=== PATIENT | female | born 1945 | race Caucasian/White ===

== ENCOUNTER → 2020-10-17 10:35 | Outpatient (CLI) | payer MEDICARE, SELFPAY ==
--- NOTE | 2020-10-17 | XR_ITS ---
PROCEDURE: XR FOOT LT MIN 3V CLINICAL INDICATION: FOOT INJURY Pain and swelling COMPARISON: No exams were available for comparison FINDINGS: No fracture or dislocation. No lytic or blastic change. There is normal mineralization. The joint spaces are well-preserved. No significant degenerative/arthritic changes. No erosive changes evident. Other findings:Small enthesophyte noted at the Achilles region IMPRESSION: No acute findings. Dictated by: Mario Sewell MD 10/17/2020 11:24 Mario Sewell MD in [place] 10/17/2020 11:24
--- NOTE | 2020-10-17 | XR_ITS ---
PROCEDURE: XR ANKLE LT MIN 3V CLINICAL INDICATION: ANKLE PAIN, LT COMPARISON: No exams were available for comparison FINDINGS: No fracture or dislocation. No lytic or blastic change. There is normal mineralization. The joint spaces are well-preserved. No significant degenerative/arthritic changes. No erosive changes evident. Other findings:There is mild soft tissue swelling medially. Faint calcific density along the medial aspect and at the tip of the medial malleolus IMPRESSION: Soft tissue swelling. There are 2 faint calcific densities at the medial malleolar region. The larger of the 2 areas as well circumscribed and more medial. Smaller of 2 regions is at the tip of the medial malleolus and could be due to an old or acute avulsion injury. Dictated by: Mario Sewell MD 10/17/2020 11:27 Mario Sewell MD in [facility] 10/17/2020 11:27
== END ==
PROVIDERS: PCP Family Medicine; Visit Provider Nurse Practitioner Family
DX: M25.572 Pain in left ankle and joints of left foot (principal); S99.922A Unspecified injury of left foot, initial encounter
CPT/HCPCS: 73610; 73630

== ENCOUNTER → 2020-10-18 07:10 | Outpatient (CLI) | payer MEDICARE, SELFPAY ==
--- NOTE | 2020-10-18 07:17 | CT_ITS ---
PROCEDURE: CT ANKLE LT WO CON CLINICAL HISTORY: ANKLE PAIN Heavy box fell onto lt ankle Pain medially Poss fx COMPARISON: CR XR ANKLE LT MIN 3V from 10/17/2020 TECHNIQUE: Axial images obtained with sagittal and coronal reformats. All CT scans at the facility use one or more dose reduction, viz: automated exposure control, ma/kV adjustment per patient size (including targeted exams where dose is matched to indication, i.e. head), or iterative reconstruction technique. FINDINGS: Faint calcific densities are present at the tip the medial malleolus. Largest of these densities measures approximately 4 mm and is well-circumscribed consistent with either an old injury or ununited ossicle. The 2 smaller densities are proximally 1 mm. These are likely due to additional small areas of dystrophic calcification as opposed to avulsion fractures. No definite acute fracture evident. The talar dome has an unremarkable appearance. The ankle mortise is preserved. There is a faint calcific density at the tip of the lateral malleolus suspicious for an old avulsion fracture. There is prominent soft tissue swelling along the medial aspect of the ankle with a focal soft tissue density measuring 3 cm AP and 1.4 cm transverse in the subcutaneous tissues along the posterior medial aspect of the distal tibial region above the level of the ankle joint consistent with a hematoma. This extends inferiorly. Hematoma is also noted in the subcutaneous tissues medial to the calcaneus area. IMPRESSION: 1. No definite acute fracture. Calcific density is noted at the medial malleolar region which may be related to ununited ossification centers versus old fractures or dystrophic calcification. 2. Suspected old avulsion fracture of the tip of the lateral malleolus. 3. Hematoma of the lower leg medially and posteriorly and of the medial aspect of the foot and ankle. MRI may provide further evaluation for ligamentous or tendinous injury if clinically desired. Dictated by: Mario Sewell MD 10/19/2020 09:11 Mario Sewell MD in [place] 10/19/2020 09:11
== END ==
PROVIDERS: PCP Family Medicine; Visit Provider Nurse Practitioner Family
DX: M25.572 Pain in left ankle and joints of left foot (principal)
CPT/HCPCS: 73700

== ENCOUNTER 2020-10-25 13:37 | Outpatient (RCR) | payer MEDICARE, SELFPAY | END 2020-10-25 14:09 | disposition home or self-care (01) | LOC: PT 13:37 | PROVIDERS: Visit Provider Orthopaedic Surgery | DX: L03.116 Cellulitis of left lower limb (principal); S99.912A Unspecified injury of left ankle, initial encounter; S90.02XA Contusion of left ankle, initial encounter | CPT/HCPCS: 97760 ==

== ENCOUNTER → 2020-12-21 13:36 | Outpatient (CLI) | payer MEDICARE, SELFPAY ==
--- NOTE | 2020-12-21 13:44 | XR_ITS ---
PROCEDURE: XR ANKLE LT MIN 3V CLINICAL INDICATION: left ankle injury COMPARISON: CR XR ANKLE LT MIN 3V from 10/17/[address] ANKLE LT WO CON from 10/18/2020 FINDINGS: There is an old avulsion fracture at the tip of the lateral malleolus and at the tip of the medial malleolus. No acute fracture or dislocation is evident. There is mild soft tissue swelling medially. IMPRESSION: No acute findings. Dictated by: Mario Sewell MD 12/21/2020 15:49 Mario Sewell MD in [place] 12/21/2020 15:49
== END ==
PROVIDERS: PCP Family Medicine; Visit Provider Orthopaedic Surgery
DX: S99.912A Unspecified injury of left ankle, initial encounter (principal)
CPT/HCPCS: 73610

== ENCOUNTER → 2022-04-16 11:00 | Outpatient (CLI) | payer MEDICARE, SELFPAY ==
[2022-04-16 19:48] LABS: Alanine Aminotransferase 20 U/L (12-78); Albumin Level 4.9 g/dl (3.5-5.0); Albumin/Globulin Ratio 1.8 (1.1-1.8); Alkaline Phosphatase 102 U/L (38-126); Anion Gap 17.3 mEq/L (5-15); Aspartate Amino Transferase 39 U/L (14-36); Bilirubin,Total 0.5 mg/dl (0.2-1.3); Blood Urea Nitrogen 16 mg/dl (7-17); Calcium 10.6 mg/dl (8.4-10.2); Carbon Dioxide 32 mmol/L (22.0-30.0); Chloride 97 mmol/L (98-107); Chol/HDL Ratio 2.8 (1-3.5); Cholesterol 179 mg/dl (140-200); Estimated Glomerular Filt Rate 61 ml/min (>60); GFR (African American) 74 ML/MIN (>60); Globulin 2.7 g/dL (1.3-3.2); Glucose 91 mg/dl (74-100); HDL Cholesterol 64 mg/dl (40-60); Sodium 140 mmol/L (136-145); Total Protein,Serum 7.6 g/dl (6.3-8.2); Triglycerides 88 mg/dl (30-150); VLDL Cholesterol 18 mg/dL (0-40)
[2022-04-16 20:34] LABS: Potassium 6.3 mmoL/L (3.5-5.1)
== END ==
PROVIDERS: PCP Family Medicine; Visit Provider Family Medicine
DX: I10 Essential (primary) hypertension (principal)
CPT/HCPCS: 80053; 80061

== ENCOUNTER → 2022-04-18 11:52 | Outpatient (CLI) | payer MEDICARE, SELFPAY ==
[2022-04-18 17:42] LABS: Potassium 5.6 mmoL/L (3.5-5.1)
== END ==
PROVIDERS: PCP Family Medicine; Visit Provider Family Medicine
DX: E87.5 Hyperkalemia (principal)
CPT/HCPCS: 84132

== ENCOUNTER → 2022-06-06 11:16 | Outpatient (CLI) | payer MEDICARE, SELFPAY ==
[2022-06-06 18:37] LABS: Chloride 99 mmol/L (98-107); Potassium 5.6 mmoL/L (3.5-5.1); Sodium 139 mmol/L (136-145)
[2022-06-06 18:40] LABS: Anion Gap 16.6 mEq/L (5-15); Blood Urea Nitrogen 17 mg/dl (7-17); Calcium 9.6 mg/dl (8.4-10.2); Carbon Dioxide 29 mmol/L (22.0-30.0); Estimated Glomerular Filt Rate 70 ml/min (>60); GFR (African American) 84 ML/MIN (>60); Glucose 89 mg/dl (74-100)
== END ==
PROVIDERS: PCP Nurse Practitioner; Visit Provider Nurse Practitioner
DX: E78.5 Hyperlipidemia, unspecified (principal); I10 Essential (primary) hypertension
CPT/HCPCS: 80048

== ENCOUNTER → 2022-06-11 13:50 | Outpatient (CLI) | payer MEDICARE, SELFPAY ==
--- NOTE | 2022-06-11 13:50 | CA_ITS ---
FINAL REPORT TECHNIQUE: Ultrasound images of the deep venous system were obtained from the left groin to the calf veins. CLINICAL HISTORY: left popliteal pain, history Factor V Leiden mutat FINDINGS: The deep venous system is normally compressible. Normal flow is identified. IMPRESSION: No evidence of left lower extremity DVT. Reviewed, Interpreted and Dictated by Marija Silva MD Transcribed by Francheska Padgett Authenticated and [facility]
== END ==
PROVIDERS: PCP Nurse Practitioner; Visit Provider Nurse Practitioner
DX: M79.605 Pain in left leg (principal); D68.2 Hereditary deficiency of other clotting factors
CPT/HCPCS: 93971

== ENCOUNTER → 2022-06-18 14:32 | Outpatient (CLI) | payer MEDICARE, SELFPAY ==
--- NOTE | 2022-06-18 14:33 | US_ITS ---
FINAL REPORT TECHNIQUE: Limited sonographic imaging of the right thigh soft tissues was obtained. CLINICAL HISTORY: LAD right inguinal and right anterior medial thigh FINDINGS: There are several, hyperechoic soft tissue nodules measuring up to 3 cm. These are avascular and favored to represent small lipomas. No fluid collection is identified. IMPRESSION: Hyperechoic, nonvascular, soft tissue nodules measuring up to 3 cm favored to represent lipomas. Reviewed, Interpreted and Dictated by Marija Silva MD Transcribed by Francheska Padgett Authenticated and [facility]
== END ==
PROVIDERS: PCP Nurse Practitioner; Visit Provider Nurse Practitioner
DX: R59.0 Localized enlarged lymph nodes (principal)
CPT/HCPCS: 76882

== ENCOUNTER → 2022-07-06 11:00 | Outpatient (CLI) | payer MEDICARE, SELFPAY ==
[2022-07-06 18:04] LABS: Blood Urea Nitrogen 23 mg/dl (7-17); Calcium 9.6 mg/dl (8.4-10.2); Carbon Dioxide 30 mmol/L (22.0-30.0); Chloride 100 mmol/L (98-107); Estimated Glomerular Filt Rate 48 ml/min (>60); GFR (African American) 58 ML/MIN (>60); Glucose 95 mg/dl (74-100); Sodium 136 mmol/L (136-145)
== END ==
PROVIDERS: PCP Family Medicine; Visit Provider Family Medicine
DX: Z01.89 Encounter for other specified special examinations (principal); I10 Essential (primary) hypertension
CPT/HCPCS: 80048

== ENCOUNTER → 2022-07-12 21:04 | Outpatient (CLI) | payer MEDICARE, SELFPAY ==
[2022-07-12 20:01] LABS: Anion Gap 14.6 mEq/L (5-15); Blood Urea Nitrogen 14 mg/dl (7-17); Calcium 9.1 mg/dl (8.4-10.2); Carbon Dioxide 29 mmol/L (22.0-30.0); Chloride 96 mmol/L (98-107); Estimated Glomerular Filt Rate 54 ml/min (>60); GFR (African American) 65 ML/MIN (>60); Glucose 93 mg/dl (74-100); Potassium 4.6 mmoL/L (3.5-5.1); Sodium 135 mmol/L (136-145)
[2022-07-12 20:28] LABS: Creatinine,Urine Random 162 mg/dL (Not Estab.)
== END ==
PROVIDERS: PCP Nurse Practitioner; Visit Provider Nurse Practitioner
DX: I10 Essential (primary) hypertension (principal)
CPT/HCPCS: 80048; 82043; 82570

== ENCOUNTER → 2022-10-10 23:35 | Outpatient (CLI) | payer MEDICARE, SELFPAY | PROVIDERS: PCP Nurse Practitioner; Visit Provider Nurse Practitioner | DX: I10 Essential (primary) hypertension (principal) ==

== ENCOUNTER → 2022-10-16 18:47 | Outpatient (CLI) | payer MEDICARE, SELFPAY ==
[2022-10-16 19:12] LABS: Chloride 97 mmol/L (98-107); Potassium 4.8 mmoL/L (3.5-5.1); Sodium 138 mmol/L (136-145)
[2022-10-16 19:15] LABS: Alanine Aminotransferase 22 U/L (12-78); Albumin Level 4.4 g/dl (3.5-5.0); Albumin/Globulin Ratio 1.6 (1.1-1.8); Alkaline Phosphatase 116 U/L (38-126); Anion Gap 17.8 mEq/L (5-15); Aspartate Amino Transferase 61 U/L (14-36); Bilirubin,Total 0.7 mg/dl (0.2-1.3); Blood Urea Nitrogen 22 mg/dl (7-17); Calcium 9.4 mg/dl (8.4-10.2); Carbon Dioxide 28 mmol/L (22.0-30.0); Chol/HDL Ratio 2.9 (1-3.5); Cholesterol 163 mg/dl (140-200); Estimated Glomerular Filt Rate 48 ml/min (>60); GFR (African American) 58 ML/MIN (>60); Globulin 2.8 g/dL (1.3-3.2); Glucose 117 mg/dl (74-100); HDL Cholesterol 56 mg/dl (40-60); Total Protein,Serum 7.2 g/dl (6.3-8.2); Triglycerides 154 mg/dl (30-150); VLDL Cholesterol 31 mg/dL (0-40)
[2022-10-16 19:26] LABS: Direct LDL Cholesterol 64.15 mg/dL (100-129)
[2022-10-16 19:32] LABS: Free T4 (Free Thyroxine) 1.27 ng/dl (0.78-2.19)
[2022-10-16 19:47] LABS: Thyroid Stimulating Hormone < 0.02 uIU/mL (0.465-4.68)
[2022-10-18 17:18] LABS: Thyroglobulin IMA CHARGE YES; Thyroglobulin Level <1.0 IU/mL (0.0-0.9)
== END ==
PROVIDERS: PCP Nurse Practitioner; Visit Provider Nurse Practitioner
DX: I10 Essential (primary) hypertension (principal); E78.5 Hyperlipidemia, unspecified; Z79.899 Other long term (current) drug therapy
CPT/HCPCS: 80053; 80061; 84439; 84443; 86800

== ENCOUNTER → 2022-11-19 23:31 | Outpatient (CLI) | payer MEDICARE, SELFPAY ==
[2022-11-19 19:39] LABS: Basophils # 0.1 K/mm3 (0-0.2); Basophils % 0.8 % (0.1-2.0); Eosinophils # 0.2 K/mm3 (0.0-0.4); Eosinophils % 2.4 % (0.1-12.0); Hematocrit 48.1 % (37.0-47.0); Hemoglobin 14.6 g/dL (12.2-16.2); Lymphocytes # 1.5 K/mm3 (0.7-4.5); Lymphocytes % 17.9 % (10-50); Mean Corpuscular HGB Conc 30.4 g/dL (31.8-35.4); Mean Corpuscular Hemoglobin 27.1 pg (27.0-31.2); Mean Corpuscular Volume 89.3 fl (81-99); Monocytes # 0.5 K/mm3 (0.1-1.0); Monocytes % 6.2 % (1.7-9.3); Neutrophils # 5.9 K/mm3 (1.8-7.8); Neutrophils % 72.8 % (37.0-80.0); Platelet Count 639 K/mm3 (142-424); Red Blood Count 5.38 M/mm3 (4.20-5.40); Red Cell Distribution Width 14.9 % (11.5-17.5); White Blood Count 8.1 K/mm3 (4.8-10.8)
[2022-11-19 19:43] LABS: Alanine Aminotransferase 20 U/L (12-78); Albumin Level 4.5 g/dl (3.5-5.0); Albumin/Globulin Ratio 1.7 (1.1-1.8); Alkaline Phosphatase 84 U/L (38-126); Aspartate Amino Transferase 40 U/L (14-36); Bilirubin,Total 0.5 mg/dl (0.2-1.3); Blood Urea Nitrogen 17 mg/dl (7-17); Calcium 8.9 mg/dl (8.4-10.2); Carbon Dioxide 29 mmol/L (22.0-30.0); Chloride 98 mmol/L (98-107); Estimated Glomerular Filt Rate 61 ml/min (>60); GFR (African American) 73 ML/MIN (>60); Globulin 2.7 g/dL (1.3-3.2); Glucose 91 mg/dl (74-100); Sodium 138 mmol/L (136-145); Total Protein,Serum 7.2 g/dl (6.3-8.2)
== END ==
PROVIDERS: PCP Nurse Practitioner; Visit Provider Nurse Practitioner
DX: K58.9 Irritable bowel syndrome, unspecified (principal); N28.9 Disorder of kidney and ureter, unspecified; R74.8 Abnormal levels of other serum enzymes
CPT/HCPCS: 80053; 85025

== ENCOUNTER → 2023-01-17 08:42 | Outpatient (CLI) | payer MEDICARE, SELFPAY ==
--- NOTE | 2023-01-17 08:42 | MR_ITS ---
FINAL REPORT TECHNIQUE: Postcontrast images of the abdomen were performed with magnetic resonance imaging. Extensive 3-D reconstruction images were performed. Three-dimensional MIP images of the abdominal aorta and iliac arteries were evaluated. CLINICAL HISTORY: history of celiac stenosis, history liver neoplasm, BLOATING, FATIGUE, DIARRHEA COMPARISON: None FINDINGS: 3D reconstruction MRA images of the abdomen and pelvis were evaluated. There is slight tortuosity of the infrarenal abdominal aorta eccentric to the left but no significant ectasia is identified. The origins of the celiac and superior mesenteric arteries are widely patent. Single renal arteries are noted bilaterally, without evidence of significant renal artery stenosis. The inferior mesenteric artery was not identified on this exam and is presumed occluded or near occluded. The iliac arteries are widely patent without evidence of focal stenosis. IMPRESSION: Widely patent celiac and superior mesenteric arteries. The inferior mesenteric artery was not visualized, suggesting occlusion or near occlusion. Single renal arteries are present bilaterally without evidence of renal artery stenosis. Reviewed, Interpreted and Dictated by Anup Gilbert MD Transcribed by Janelle Landrum Authenticated and . [facility]
== END ==
LOC: RAD 08:42
PROVIDERS: PCP Nurse Practitioner; Visit Provider Nurse Practitioner
DX: D37.6 Neoplasm of uncertain behavior of liver, gallbladder and bile ducts (principal); I77.1 Stricture of artery
CPT/HCPCS: 74185; A9576

== ENCOUNTER → 2023-02-21 13:42 | Outpatient (CLI) | payer MEDICARE, SELFPAY ==
[2023-02-21 14:21] LABS: Basophils # 0.1 K/mm3 (0-0.2); Basophils % 0.8 % (0.1-2.0); Eosinophils # 0.4 K/mm3 (0.0-0.4); Eosinophils % 3.8 % (0.1-12.0); Hematocrit 49.3 % (37.0-47.0); Hemoglobin 15.1 g/dL (12.2-16.2); Lymphocytes # 1.8 K/mm3 (0.7-4.5); Lymphocytes % 19.2 % (10-50); Mean Corpuscular HGB Conc 30.7 g/dL (31.8-35.4); Mean Corpuscular Hemoglobin 26.6 pg (27.0-31.2); Mean Corpuscular Volume 86.8 fl (81-99); Mean Platelet Volume 9.1 fl (7.4-10.4); Monocytes # 0.6 K/mm3 (0.1-1.0); Monocytes % 5.8 % (1.7-9.3); Neutrophils # 6.7 K/mm3 (1.8-7.8); Neutrophils % 70.4 % (37.0-80.0); Platelet Count 647 K/mm3 (142-424); Red Blood Count 5.68 M/mm3 (4.20-5.40); Red Cell Distribution Width 14.6 % (11.5-17.5); White Blood Count 9.5 K/mm3 (4.8-10.8)
[2023-02-21 15:43] LABS: Iron 43 ug/dL (37-170)
[2023-02-21 15:52] LABS: Total Iron Binding Capacity 430 ug/dL (265-497)
[2023-02-21 16:20] LABS: Ferritin 8.81 ng/ml (11.1-264)
[2023-02-23 13:48] LABS: Peripheral Smear Review Scanned Result
== END ==
PROVIDERS: PCP Nurse Practitioner; Visit Provider Internal Medicine Medical Oncology
DX: D50.9 Iron deficiency anemia, unspecified; R79.89 Other specified abnormal findings of blood chemistry
CPT/HCPCS: 36415; 82728; 83540; 83550; 85025

== ENCOUNTER 2023-03-21 15:14 | Outpatient (CLI) | payer MEDICARE, SELFPAY ==
[2023-03-21 15:16] VITALS: BMI 23.6
--- NOTE | 2023-03-21 15:24 | PC.NURSE ---
1524-collected labs via venipuncture stick with butterfly in left ac;waiting for labs for possible therapeutic phlebotomy if hct >45
[2023-03-21 15:32] LABS: Basophils # 0.1 K/mm3 (0-0.2); Eosinophils # 0.3 K/mm3 (0.0-0.4); Eosinophils % 3.4 % (0.1-12.0); Hematocrit 45.8 % (37.0-47.0); Lymphocytes # 1.9 K/mm3 (0.7-4.5); Lymphocytes % 23.5 % (10-50); Mean Corpuscular HGB Conc 32.8 g/dL (31.8-35.4); Mean Corpuscular Hemoglobin 28.7 pg (27.0-31.2); Mean Corpuscular Volume 87.5 fl (81-99); Mean Platelet Volume 8.8 fl (7.4-10.4); Monocytes # 0.4 K/mm3 (0.1-1.0); Monocytes % 4.7 % (1.7-9.3); Neutrophils # 5.4 K/mm3 (1.8-7.8); Neutrophils % 67.3 % (37.0-80.0); Platelet Count 609 K/mm3 (142-424); Red Blood Count 5.24 M/mm3 (4.20-5.40); Red Cell Distribution Width 16.5 % (11.5-17.5)
--- NOTE | 2023-03-21 15:38 | PC.NURSE ---
1538-pt d/c home she did not need phlebotomy with hct of 45.8.
== END 2023-03-21 15:38 | disposition home or self-care (01) ==
LOC: INF 15:15
PROVIDERS: PCP Nurse Practitioner; Visit Provider Internal Medicine Medical Oncology
DX: Z15.89 Genetic susceptibility to other disease (principal); D45 Polycythemia vera; D47.1 Chronic myeloproliferative disease; D68.2 Hereditary deficiency of other clotting factors
CPT/HCPCS: 36415; 85025

== ENCOUNTER → 2023-04-10 10:53 | Outpatient (CLI) | payer MEDICARE, SELFPAY ==
[2023-04-10 11:36] LABS: Basophils # 0.1 K/mm3 (0-0.2); Basophils % 1.1 % (0.1-2.0); Eosinophils # 0.3 K/mm3 (0.0-0.4); Eosinophils % 3.2 % (0.1-12.0); Hematocrit 49.8 % (37.0-47.0); Hemoglobin 16.1 g/dL (12.2-16.2); Lymphocytes # 1.3 K/mm3 (0.7-4.5); Lymphocytes % 16.6 % (10-50); Mean Corpuscular HGB Conc 32.4 g/dL (31.8-35.4); Mean Corpuscular Hemoglobin 29.3 pg (27.0-31.2); Mean Corpuscular Volume 90.5 fl (81-99); Mean Platelet Volume 8.5 fl (7.4-10.4); Monocytes # 0.4 K/mm3 (0.1-1.0); Monocytes % 5.1 % (1.7-9.3); Neutrophils # 5.9 K/mm3 (1.8-7.8); Neutrophils % 73.9 % (37.0-80.0); Platelet Count 590 K/mm3 (142-424); Red Cell Distribution Width 17.2 % (11.5-17.5)
[2023-04-10 12:10] LABS: Iron 101 ug/dL (37-170)
[2023-04-10 12:19] LABS: Total Iron Binding Capacity 357 ug/dL (265-497)
[2023-04-10 12:47] LABS: Ferritin 38.2 ng/ml (11.1-264)
[2023-04-11 20:30] LABS: Erythropoietin 0.9 mIU/mL (2.6-18.5)
== END ==
LOC: LAB 10:55
PROVIDERS: PCP Nurse Practitioner; Visit Provider Internal Medicine Medical Oncology
DX: D45 Polycythemia vera; Z15.89 Genetic susceptibility to other disease; D50.8 Other iron deficiency anemias
CPT/HCPCS: 36415; 82668; 82728; 83540; 83550; 85025

== ENCOUNTER 2023-04-12 10:52 | Outpatient (CLI) | payer MEDICARE, SELFPAY | END 2023-04-12 11:30 | disposition home or self-care (01) | LOC: INF 10:53 | PROVIDERS: PCP Nurse Practitioner; Visit Provider Internal Medicine Medical Oncology | DX: D45 Polycythemia vera (principal); Z15.89 Genetic susceptibility to other disease | CPT/HCPCS: 99195 ==

== ENCOUNTER 2023-04-23 10:52 | Outpatient (CLI) | payer MEDICARE, SELFPAY ==
[2023-04-23 11:04] VITALS: BMI 23.6
--- NOTE | 2023-04-23 11:15 | PC.NURSE ---
1115-collected labs via venipuncture stick in right ac;pt to wait on results if hct >45 pt to have therapeutic phlebotomy 250ml draw off per md order
[2023-04-23 11:32] LABS: Hematocrit 42.8 % (37.0-47.0); Hemoglobin 13.6 g/dL (12.2-16.2)
--- NOTE | 2023-04-23 11:56 | PC.NURSE ---
1156-pt d/c home today; hct 42.6
[2023-04-23 12:06] LABS: MANUAL DIFFERENTIAL MANUAL DIFFERENTIAL (MANUAL DIFF)
[2023-04-23 12:12] LABS: Chloride 103 mmol/L (98-107); Sodium 139 mmol/L (136-145)
[2023-04-23 12:15] LABS: Blood Urea Nitrogen 11 mg/dl (7-17); Calcium 8.7 mg/dl (8.4-10.2); Carbon Dioxide 31 mmol/L (22.0-30.0); Creatinine Clearance Estimated 47 mL/min (50-200); Estimated Glomerular Filt Rate 61 ml/min (>60); GFR (African American) 73 ML/MIN (>60); Glucose 89 mg/dl (74-100)
[2023-04-23 12:20] LABS: Basophils # 0.1 K/mm3 (0-0.2); Basophils % 0.9 % (0.1-2.0); Eosinophils # 0.4 K/mm3 (0.0-0.4); Eosinophils % 4.6 % (0.1-12.0); Hematocrit 44.2 % (37.0-47.0); Hemoglobin 14.1 g/dL (12.2-16.2); Lymphocytes # 1.5 K/mm3 (0.7-4.5); Lymphocytes % 20.4 % (10-50); Mean Corpuscular HGB Conc 31.9 g/dL (31.8-35.4); Mean Corpuscular Hemoglobin 29.2 pg (27.0-31.2); Mean Corpuscular Volume 91.8 fl (81-99); Mean Platelet Volume 8.9 fl (7.4-10.4); Monocytes # 0.4 K/mm3 (0.1-1.0); Monocytes % 5.1 % (1.7-9.3); Neutrophils # 5.2 K/mm3 (1.8-7.8); Neutrophils % 68.9 % (37.0-80.0); Platelet Count 601 K/mm3 (142-424); Red Blood Count 4.82 M/mm3 (4.20-5.40); Red Cell Distribution Width 17.5 % (11.5-17.5); White Blood Count 7.5 K/mm3 (4.8-10.8)
[2023-04-23 12:54] LABS: Eosinophils % 4 % (0-3); Lymphocytes % 24 % (10-50); Monocytes % 3 % (2-9); Neutrophils % 68 % (42-76); Platelet Estimate Marked Increase; RBC Morphology Normal; Total Cells Counted 100
== END 2023-04-23 11:56 | disposition home or self-care (01) ==
LOC: INF 10:54
PROVIDERS: PCP Nurse Practitioner; Visit Provider Internal Medicine Medical Oncology
DX: E89.0 Postprocedural hypothyroidism (principal); R79.89 Other specified abnormal findings of blood chemistry; N28.9 Disorder of kidney and ureter, unspecified; C73 Malignant neoplasm of thyroid gland; D45 Polycythemia vera
CPT/HCPCS: 36415; 80048; 84443; 85007; 85014; 85018; 85048; 85049

== ENCOUNTER 2023-05-06 10:36 | Outpatient (CLI) | payer MEDICARE, SELFPAY ==
[2023-05-06 10:43] VITALS: BMI 23.6
--- NOTE | 2023-05-06 10:50 | PC.NURSE ---
1050-COLLECTED LABS VIA VENIPUNCTURE STICK WITH BUTTERFLY NEEDLE IN RIGHT AC; PT TO WAIT FOR LABS FOR POSSIBLE THERAPEUTIC PHLEBOTOMY IF HCT>45
[2023-05-06 11:05] LABS: Hemoglobin 14.5 g/dL (12.2-16.2)
--- NOTE | 2023-05-06 11:15 | PC.NURSE ---
1115-PT TO D/C HOME HCT 45
== END 2023-05-06 11:15 | disposition home or self-care (01) ==
LOC: INF 10:38
PROVIDERS: PCP Nurse Practitioner; Visit Provider Internal Medicine Medical Oncology
DX: D45 Polycythemia vera (principal); Z15.89 Genetic susceptibility to other disease
CPT/HCPCS: 36415; 85014; 85018

== ENCOUNTER 2023-05-22 10:02 | Outpatient (CLI) | payer MEDICARE, SELFPAY ==
[2023-05-22 10:10] VITALS: BMI 24.7
--- NOTE | 2023-05-22 10:20 | PC.NURSE ---
1020-collected labs via venipuncture stick with butterfly needle in right ac;pt to md appointment and to return for therapeutic phlebotomy if hct >45
[2023-05-22 11:15] LABS: Alanine Aminotransferase 28 U/L (12-78); Albumin Level 4.7 g/dl (3.5-5.0); Albumin/Globulin Ratio 1.5 (1.1-1.8); Alkaline Phosphatase 77 U/L (38-126); Anion Gap 11.4 mEq/L (5-15); Aspartate Amino Transferase 48 U/L (14-36); Bilirubin,Total 0.6 mg/dl (0.2-1.3); Blood Urea Nitrogen 13 mg/dl (7-17); Calcium 8.5 mg/dl (8.4-10.2); Carbon Dioxide 29 mmol/L (22.0-30.0); Chloride 99 mmol/L (98-107); Chol/HDL Ratio 3.9 (1-3.5); Cholesterol 199 mg/dl (140-200); Creatinine Clearance Estimated 49 mL/min (50-200); Estimated Glomerular Filt Rate 61 ml/min (>60); GFR (African American) 73 ML/MIN (>60); Globulin 3.1 g/dL (1.3-3.2); Glucose 100 mg/dl (74-100); HDL Cholesterol 51 mg/dl (40-60); Potassium 3.4 mmoL/L (3.5-5.1); Sodium 136 mmol/L (136-145); Total Protein,Serum 7.8 g/dl (6.3-8.2); Triglycerides 106 mg/dl (30-150); VLDL Cholesterol 21 mg/dL (0-40)
[2023-05-22 11:23] LABS: Basophils # 0.1 K/mm3 (0-0.2); Basophils % 1.1 % (0.1-2.0); Eosinophils # 0.2 K/mm3 (0.0-0.4); Eosinophils % 3.2 % (0.1-12.0); Hematocrit 47.3 % (37.0-47.0); Hemoglobin 15.3 g/dL (12.2-16.2); Lymphocytes # 1.2 K/mm3 (0.7-4.5); Lymphocytes % 20.6 % (10-50); Mean Corpuscular HGB Conc 32.4 g/dL (31.8-35.4); Mean Corpuscular Hemoglobin 30.1 pg (27.0-31.2); Mean Corpuscular Volume 92.9 fl (81-99); Mean Platelet Volume 8.4 fl (7.4-10.4); Monocytes # 0.3 K/mm3 (0.1-1.0); Monocytes % 4.7 % (1.7-9.3); Neutrophils # 4.2 K/mm3 (1.8-7.8); Neutrophils % 70.4 % (37.0-80.0); Platelet Count 478 K/mm3 (142-424); Red Blood Count 5.09 M/mm3 (4.20-5.40); Red Cell Distribution Width 17.4 % (11.5-17.5)
[2023-05-22 11:27] VITALS: BP 153/81; PULSE 72; RESP 18; O2SAT 96
[2023-05-22 11:27] LABS: Thyroid Stimulating Hormone 1.68 uIU/mL (0.465-4.68)
[2023-05-22 11:50] VITALS: BP 144/93; PULSE 73; RESP 18; O2SAT 96
[2023-05-23 16:17] LABS: Thyroglobulin IMA CHARGE YES; Thyroglobulin Level <1.0 IU/mL (0.0-0.9)
== END 2023-05-22 11:50 | disposition home or self-care (01) ==
LOC: INF 10:04
PROVIDERS: Internal Medicine Endocrinology, Diabetes & Metabolism; PCP Nurse Practitioner; Visit Provider Internal Medicine Medical Oncology
DX: C73 Malignant neoplasm of thyroid gland (principal); E78.5 Hyperlipidemia, unspecified; I10 Essential (primary) hypertension; Z15.89 Genetic susceptibility to other disease; Z79.899 Other long term (current) drug therapy
CPT/HCPCS: 36415; 80053; 80061; 84443; 85014; 85018; 85025; 86800; 99195

== ENCOUNTER 2023-06-06 19:43 | Outpatient (CLI) | payer MEDICARE, SELFPAY ==
[2023-06-06 20:10] LABS: Basophils # 0.1 K/mm3 (0-0.2); Basophils % 0.9 % (0.1-2.0); Eosinophils # 0.2 K/mm3 (0.0-0.4); Eosinophils % 2.8 % (0.1-12.0); Hematocrit 45.5 % (37.0-47.0); Hemoglobin 14.8 g/dL (12.2-16.2); Lymphocytes # 1.5 K/mm3 (0.7-4.5); Lymphocytes % 24.9 % (10-50); Mean Corpuscular HGB Conc 32.5 g/dL (31.8-35.4); Mean Corpuscular Hemoglobin 31.5 pg (27.0-31.2); Mean Platelet Volume 9.5 fl (7.4-10.4); Monocytes # 0.3 K/mm3 (0.1-1.0); Monocytes % 4.6 % (1.7-9.3); Neutrophils % 66.9 % (37.0-80.0); Platelet Count 466 K/mm3 (142-424); Red Blood Count 4.69 M/mm3 (4.20-5.40); Red Cell Distribution Width 17.2 % (11.5-17.5)
[2023-06-06 20:13] LABS: Chloride 101 mmol/L (98-107); Potassium 4.9 mmoL/L (3.5-5.1); Sodium 139 mmol/L (136-145)
[2023-06-06 20:15] LABS: Alanine Aminotransferase 19 U/L (12-78); Aspartate Amino Transferase 49 U/L (14-36); Blood Urea Nitrogen 11 mg/dl (7-17); Estimated Glomerular Filt Rate 61 ml/min (>60); GFR (African American) 73 ML/MIN (>60)
[2023-06-06 20:16] LABS: Albumin Level 4.6 g/dl (3.5-5.0); Albumin/Globulin Ratio 1.7 (1.1-1.8); Alkaline Phosphatase 80 U/L (38-126); Anion Gap 13.9 mEq/L (5-15); Bilirubin,Total 0.6 mg/dl (0.2-1.3); Calcium 9.2 mg/dl (8.4-10.2); Carbon Dioxide 29 mmol/L (22.0-30.0); Globulin 2.7 g/dL (1.3-3.2); Glucose 89 mg/dl (74-100); Total Protein,Serum 7.3 g/dl (6.3-8.2)
== END 2023-06-06 23:59 ==
LOC: LAB.DROPOF 19:44
PROVIDERS: PCP Nurse Practitioner; Visit Provider Nurse Practitioner
DX: E87.6 Hypokalemia (principal); R53.83 Other fatigue
CPT/HCPCS: 80053; 85025

== ENCOUNTER 2023-06-19 12:38 | Outpatient (CLI) | payer MEDICARE, SELFPAY ==
[2023-06-19 12:46] VITALS: BMI 23.1
[2023-06-19 13:01] LABS: Hematocrit 41.1 % (37.0-47.0); Hemoglobin 13.1 g/dL (12.2-16.2)
--- NOTE | 2023-06-19 13:01 | PC.NURSE ---
1253 H&H collected per venipuncture to R AC x 1 stick with buterfly needle. Patient here for possible therapeutic phlebotomy based on H&H results.
== END 2023-06-19 23:59 ==
LOC: INF 12:39
PROVIDERS: PCP Nurse Practitioner; Visit Provider Internal Medicine Medical Oncology
DX: D45 Polycythemia vera (principal); D68.2 Hereditary deficiency of other clotting factors; Z15.89 Genetic susceptibility to other disease
CPT/HCPCS: 36415; 85014; 85018

== ENCOUNTER 2023-07-19 09:39 | Outpatient (CLI) | payer MEDICARE, SELFPAY ==
[2023-07-19 09:42] VITALS: BMI 23.3
[2023-07-19 10:41] LABS: Basophils % 0.3 % (0.1-2.0); Eosinophils # 0.1 K/mm3 (0.0-0.4); Hematocrit 42.4 % (37.0-47.0); Hemoglobin 13.5 g/dL (12.2-16.2); Lymphocytes # 1.1 K/mm3 (0.7-4.5); Lymphocytes % 16.8 % (10-50); Mean Corpuscular HGB Conc 31.7 g/dL (31.8-35.4); Mean Corpuscular Volume 104.2 fl (81-99); Mean Platelet Volume 9.3 fl (7.4-10.4); Monocytes # 0.3 K/mm3 (0.1-1.0); Monocytes % 5.1 % (1.7-9.3); Neutrophils # 5.1 K/mm3 (1.8-7.8); Neutrophils % 75.8 % (37.0-80.0); Platelet Count 419 K/mm3 (142-424); Red Blood Count 4.07 M/mm3 (4.20-5.40); Red Cell Distribution Width 16.1 % (11.5-17.5); White Blood Count 6.7 K/mm3 (4.8-10.8)
--- NOTE | 2023-07-19 12:31 | PC.NURSE ---
1025 - BLOOD DRAWN FROM RIGHT AC USING BUTTERFLY NEEDLE TO CHECK CBC PER DR HAYES AND TSH PER DR REICH.
--- NOTE | 2023-07-19 12:33 | PC.NURSE ---
1045 - THERAPEUTIC PHLEBOTOMY NOT NEEDED DUE TO HCT 42.4. SCHEDULED TO RETURN IN 1 MONTH FOR LABS AND PHLEBOTOMY IF INDICATED BY HCT.
== END 2023-07-19 10:48 | disposition home or self-care (01) ==
LOC: INF 09:40
PROVIDERS: Internal Medicine Endocrinology, Diabetes & Metabolism; PCP Nurse Practitioner; Visit Provider Internal Medicine Medical Oncology
DX: D45 Polycythemia vera (principal); E89.0 Postprocedural hypothyroidism; Z79.899 Other long term (current) drug therapy
CPT/HCPCS: 36415; 84443; 85025

== ENCOUNTER 2023-08-14 10:04 | Outpatient (CLI) | payer MEDICARE, SELFPAY ==
[2023-08-14 10:12] VITALS: BMI 24.0
[2023-08-14 10:24] LABS: Basophils # 0.1 K/mm3 (0-0.2); Basophils % 1.3 % (0.1-2.0); Eosinophils # 0.2 K/mm3 (0.0-0.4); Hematocrit 46.2 % (37.0-47.0); Hemoglobin 14.5 g/dL (12.2-16.2); Lymphocytes # 1.5 K/mm3 (0.7-4.5); Lymphocytes % 18.7 % (10-50); Mean Corpuscular HGB Conc 31.3 g/dL (31.8-35.4); Mean Corpuscular Volume 108.5 fl (81-99); Mean Platelet Volume 9.2 fl (7.4-10.4); Monocytes # 0.4 K/mm3 (0.1-1.0); Monocytes % 4.8 % (1.7-9.3); Neutrophils # 5.8 K/mm3 (1.8-7.8); Neutrophils % 73.2 % (37.0-80.0); Platelet Count 478 K/mm3 (142-424); Red Blood Count 4.26 M/mm3 (4.20-5.40); Red Cell Distribution Width 16.3 % (11.5-17.5)
--- NOTE | 2023-08-14 15:22 | PC.NURSE ---
1130- Pt seen by MD Lora in office today. Hct 46.2 and he does not want pt to have phlebotomy today per DAVID Falcon. pt scheduled for recheck and possible phlebotomy in 4 weeks, 09/11/23.
== END 2023-08-14 10:45 | disposition home or self-care (01) ==
LOC: INF 10:04
PROVIDERS: PCP Nurse Practitioner; Visit Provider Internal Medicine Medical Oncology
DX: D45 Polycythemia vera (principal)
CPT/HCPCS: 36415; 85025

== ENCOUNTER 2023-09-16 12:55 | Outpatient (CLI) | payer MEDICARE, SELFPAY ==
[2023-09-16 13:00] VITALS: BMI 23.3
--- NOTE | 2023-09-16 13:20 | PC.NURSE ---
1320-collected labs via venipuncture stick in left ac with butterfly needle; pt to wait on results for possible therapeutic phlebotomy
[2023-09-16 13:55] LABS: Basophils # 0.1 K/mm3 (0-0.2); Basophils % 0.9 % (0.1-2.0); Eosinophils # 0.1 K/mm3 (0.0-0.4); Eosinophils % 2.2 % (0.1-12.0); Hematocrit 40.1 % (37.0-47.0); Lymphocytes # 1.3 K/mm3 (0.7-4.5); Lymphocytes % 21.9 % (10-50); Mean Corpuscular HGB Conc 32.5 g/dL (31.8-35.4); Mean Corpuscular Hemoglobin 34.4 pg (27.0-31.2); Mean Corpuscular Volume 105.8 fl (81-99); Mean Platelet Volume 9.3 fl (7.4-10.4); Monocytes # 0.4 K/mm3 (0.1-1.0); Monocytes % 6.1 % (1.7-9.3); Neutrophils # 3.9 K/mm3 (1.8-7.8); Neutrophils % 68.9 % (37.0-80.0); Platelet Count 401 K/mm3 (142-424); Red Blood Count 3.79 M/mm3 (4.20-5.40); Red Cell Distribution Width 15.1 % (11.5-17.5); White Blood Count 5.7 K/mm3 (4.8-10.8)
--- NOTE | 2023-09-16 14:03 | PC.NURSE ---
1403-pt d/c home no phlebotomy today with hct 40.6; pt to return in one month for recheck.
[2023-09-16 14:19] LABS: Thyroid Stimulating Hormone 1.82 uIU/mL (0.465-4.68)
[2023-09-18 09:34] LABS: Thyroglobulin IMA CHARGE YES; Thyroglobulin Level <1.0 IU/mL (0.0-0.9)
== END 2023-09-16 14:03 | disposition home or self-care (01) ==
LOC: INF 12:56
PROVIDERS: Internal Medicine Endocrinology, Diabetes & Metabolism; PCP Nurse Practitioner; Visit Provider Internal Medicine Medical Oncology
DX: D45 Polycythemia vera (principal); Z85.850 Personal history of malignant neoplasm of thyroid
CPT/HCPCS: 36415; 84443; 85025; 86800

== ENCOUNTER 2023-10-14 12:49 | Outpatient (CLI) | payer MEDICARE, SELFPAY ==
[2023-10-14 12:57] VITALS: BMI 23.6
--- NOTE | 2023-10-14 13:11 | PC.NURSE ---
Pt presents today for lab check and possible phlebotomy. Venipuncture performed using butterfly needle to pt's lt ac x 1 stick-blood drawn. Needle withdrawn and site secured with 2x2 gauze and coban. Pt will await results to determine if phlebotomy is needed.
[2023-10-14 13:13] LABS: Basophils # 0.1 K/mm3 (0-0.2); Basophils % 1.7 % (0.1-2.0); Eosinophils # 0.2 K/mm3 (0.0-0.4); Eosinophils % 2.6 % (0.1-12.0); Hematocrit 42.5 % (37.0-47.0); Hemoglobin 13.1 g/dL (12.2-16.2); Lymphocytes # 1.2 K/mm3 (0.7-4.5); Lymphocytes % 18.6 % (10-50); Mean Corpuscular HGB Conc 30.9 g/dL (31.8-35.4); Mean Corpuscular Hemoglobin 34.1 pg (27.0-31.2); Mean Corpuscular Volume 110.4 fl (81-99); Monocytes # 0.4 K/mm3 (0.1-1.0); Monocytes % 5.4 % (1.7-9.3); Neutrophils # 4.7 K/mm3 (1.8-7.8); Neutrophils % 71.7 % (37.0-80.0); Platelet Count 388 K/mm3 (142-424); Red Blood Count 3.85 M/mm3 (4.20-5.40); Red Cell Distribution Width 14.4 % (11.5-17.5); White Blood Count 6.5 K/mm3 (4.8-10.8)
== END 2023-10-14 13:19 | disposition home or self-care (01) ==
LOC: INF 12:50
PROVIDERS: PCP Nurse Practitioner; Visit Provider Internal Medicine Medical Oncology
DX: D68.2 Hereditary deficiency of other clotting factors (principal); D45 Polycythemia vera
CPT/HCPCS: 36415; 85025

== ENCOUNTER 2023-11-14 10:24 | Outpatient (CLI) | payer MEDICARE, SELFPAY ==
[2023-11-14 10:29] VITALS: BMI 23.3
--- NOTE | 2023-11-14 10:35 | PC.NURSE ---
1035-collected labs via venipuncture stick in left ac with butterfly needle;pt to hematology appointment with dr. ko and to return for therapeutic phlebotomy if hct >45
[2023-11-14 10:47] LABS: Basophils # 0.1 K/mm3 (0-0.2); Basophils % 1.5 % (0.1-2.0); Eosinophils # 0.2 K/mm3 (0.0-0.4); Eosinophils % 2.3 % (0.1-12.0); Hematocrit 45.6 % (37.0-47.0); Lymphocytes # 1.2 K/mm3 (0.7-4.5); Lymphocytes % 17.8 % (10-50); Mean Corpuscular HGB Conc 30.7 g/dL (31.8-35.4); Mean Corpuscular Hemoglobin 33.8 pg (27.0-31.2); Mean Corpuscular Volume 110.2 fl (81-99); Mean Platelet Volume 9.3 fl (7.4-10.4); Monocytes # 0.3 K/mm3 (0.1-1.0); Monocytes % 4.4 % (1.7-9.3); Neutrophils # 5.2 K/mm3 (1.8-7.8); Platelet Count 418 K/mm3 (142-424); Red Blood Count 4.14 M/mm3 (4.20-5.40)
[2023-11-14 10:49] LABS: Chloride 102 mmol/L (98-107); Potassium 4.2 mmoL/L (3.5-5.1); Sodium 140 mmol/L (136-145)
[2023-11-14 10:51] LABS: Alanine Aminotransferase 21 U/L (12-78); Aspartate Amino Transferase 40 U/L (14-36); Blood Urea Nitrogen 14 mg/dl (7-17); Creatinine Clearance Estimated 45 mL/min (50-200); Estimated Glomerular Filt Rate 61 ml/min (>60); GFR (African American) 73 ML/MIN (>60)
[2023-11-14 10:52] LABS: Albumin Level 4.7 g/dl (3.5-5.0); Albumin/Globulin Ratio 1.6 (1.1-1.8); Alkaline Phosphatase 60 U/L (38-126); Anion Gap 10.2 mEq/L (5-15); Bilirubin,Total 0.3 mg/dl (0.2-1.3); Calcium 9.2 mg/dl (8.4-10.2); Carbon Dioxide 32 mmol/L (22.0-30.0); Globulin 2.9 g/dL (1.3-3.2); Glucose 98 mg/dl (74-100); Total Protein,Serum 7.6 g/dl (6.3-8.2)
[2023-11-14 11:48] VITALS: BP 170/74; PULSE 62; RESP 18; O2SAT 98
[2023-11-14 12:25] VITALS: BP 140/60; PULSE 60; RESP 18; O2SAT 99
== END 2023-11-14 12:25 | disposition home or self-care (01) ==
LOC: INF 10:25
PROVIDERS: PCP Nurse Practitioner; Visit Provider Internal Medicine Medical Oncology
DX: D45 Polycythemia vera (principal); Z79.899 Other long term (current) drug therapy
CPT/HCPCS: 36415; 80053; 85025; 99195

== ENCOUNTER 2023-11-26 13:05 | Outpatient (POV) | payer MEDICARE, SELFPAY | END 2023-11-26 23:59 | disposition home or self-care (01) | LOC: SC 13:05 | PROVIDERS: PCP Nurse Practitioner; Visit Provider Dermatology | DX: Z00.00 Encounter for general adult medical examination without abnormal findings (principal) ==

== ENCOUNTER 2023-12-12 10:06 | Outpatient (CLI) | payer MEDICARE, SELFPAY ==
[2023-12-12 10:12] VITALS: BMI 23.0
--- NOTE | 2023-12-12 10:17 | PC.NURSE ---
1017-collected labs via venipuncture stick in right ac;pt to wait on labs for possible therapeutic phlebotomy.
[2023-12-12 10:31] LABS: Basophils # 0.1 K/mm3 (0-0.2); Eosinophils # 0.2 K/mm3 (0.0-0.4); Eosinophils % 3.2 % (0.1-12.0); Hematocrit 33.7 % (37.0-47.0); Hemoglobin 12.1 g/dL (12.2-16.2); Lymphocytes # 1.4 K/mm3 (0.7-4.5); Lymphocytes % 18.7 % (10-50); Mean Corpuscular HGB Conc 35.9 g/dL (31.8-35.4); Mean Corpuscular Hemoglobin 35.8 pg (27.0-31.2); Mean Corpuscular Volume 99.8 fl (81-99); Mean Platelet Volume 9.1 fl (7.4-10.4); Monocytes # 0.5 K/mm3 (0.1-1.0); Monocytes % 6.8 % (1.7-9.3); Neutrophils # 5.2 K/mm3 (1.8-7.8); Neutrophils % 70.3 % (37.0-80.0); Platelet Count 550 K/mm3 (142-424); Red Blood Count 3.37 M/mm3 (4.20-5.40); Red Cell Distribution Width 15.9 % (11.5-17.5); White Blood Count 7.4 K/mm3 (4.8-10.8)
[2023-12-12 10:32] LABS: Chloride 107 mmol/L (98-107); Potassium 3.7 mmoL/L (3.5-5.1); Sodium 139 mmol/L (136-145)
[2023-12-12 10:34] LABS: Alanine Aminotransferase 20 U/L (12-78); Alkaline Phosphatase 62 U/L (38-126); Aspartate Amino Transferase 41 U/L (14-36); Bilirubin,Total 0.4 mg/dl (0.2-1.3); Blood Urea Nitrogen 12 mg/dl (7-17); Creatinine Clearance Estimated 44 mL/min (50-200); Estimated Glomerular Filt Rate 69 ml/min (>60); GFR (African American) 84 ML/MIN (>60)
[2023-12-12 10:35] LABS: Albumin Level 4.3 g/dl (3.5-5.0); Albumin/Globulin Ratio 1.6 (1.1-1.8); Anion Gap 7.7 mEq/L (5-15); Calcium 9.2 mg/dl (8.4-10.2); Carbon Dioxide 28 mmol/L (22.0-30.0); Globulin 2.7 g/dL (1.3-3.2); Glucose 98 mg/dl (74-100)
--- NOTE | 2023-12-12 10:38 | PC.NURSE ---
1038-pt d/c to md appointment; hct 33.7
== END 2023-12-12 10:38 | disposition home or self-care (01) ==
LOC: INF 10:07
PROVIDERS: PCP Nurse Practitioner; Visit Provider Internal Medicine Medical Oncology
DX: D45 Polycythemia vera (principal)
CPT/HCPCS: 36415; 80053; 85025